=== PATIENT | male | born 1985 | race Caucasian/White ===

== ENCOUNTER 2021-03-23 08:00 | Outpatient (CLI) | payer OTHER, MEDICAID | END 2021-03-23 23:59 | disposition home or self-care (01) | LOC: LAB.N 08:00 | PROVIDERS: ATTEND Family Medicine | DX: U07.1 COVID-19 (principal) ==

== ENCOUNTER 2022-07-17 07:18 | Outpatient (CLI) | payer OTHER, MEDICAID ==
[2022-07-17 12:17] LABS: BASOPHILS # (AUTO) 0.1 10^3/uL (0.0-0.1); BASOPHILS % (AUTO) 0.7 %; EOSINOPHILS # (AUTO) 0.1 10^3/uL (0.0-0.7); EOSINOPHILS % (AUTO) 0.9 %; HCT - HEMATOCRIT 49.2 % (42.0-52.0); HGB - HEMOGLOBIN 16.5 g/dL (14.0-18.0); LYMPHOCYTES # (AUTO) 1.8 10^3/uL (1.5-3.5); LYMPHOCYTES % (AUTO) 22.6 %; MEAN CORPUSCULAR HEMOGLOBIN 30.1 pg (27.0-31.0); MEAN CORPUSCULAR HGB CONC 33.5 g/dL (32.0-36.0); MEAN CORPUSCULAR VOLUME 89.8 fL (80.0-94.0); MEAN PLATELET VOLUME 11.2 fL (7.4-11.4); MONOCYTES # (AUTO) 0.7 10^3/uL (0.0-1.0); MONOCYTES % (AUTO) 8.8 %; NEUTROPHILS # (AUTO) 5.4 10^3/uL (1.5-6.6); NEUTROPHILS % (AUTO) 66.8 %; PLT - PLATELET COUNT 226 10^3/uL (130-450); RED BLOOD COUNT 5.48 10^6/uL (4.70-6.10); WHITE BLOOD COUNT 8.1 x10^3/uL (4.8-10.8)
[2022-07-17 17:33] LABS: ALBUMIN 4.1 g/dL (3.2-5.5); ALBUMIN/GLOBULIN RATIO 1.3 (1.0-2.2); ALKALINE PHOSPHATASE 56 IU/L (42-121); ALT ALANINE AMINOTRANSFERASE 28 IU/L (10-60); AST ASPARTATE AMINOTRANSFERASE 22 IU/L (10-42); BILIRUBIN,TOTAL 0.8 mg/dL (0.2-1.0); BUN - BLOOD UREA NITROGEN 18 mg/dL (6-20); CALCIUM 10.4 mg/dL (8.5-10.3); CARBON DIOXIDE - CO2 24 mmol/L (21-32); CHLORIDE 105 mmol/L (101-111); CHOL/HDL RATIO 3.7 (<5.0); CHOLESTEROL 164 mg/dL; CREATININE 0.8 mg/dL (0.6-1.2); GFR - MDRD 108 (>89); GLUCOSE 109 mg/dL (70-100); HDL CHOLESTEROL 44 mg/dL; LDL CHOLESTEROL,CALCULATED 107 mg/dL; LDL/HDL RATIO 2.4 (<3.6); POTASSIUM 4.2 mmol/L (3.5-5.0); SODIUM 142 mmol/L (135-145); TOTAL PROTEIN 7.2 g/dL (6.7-8.2); TRIGLYCERIDES 64 mg/dL; VLDL CHOLESTEROL 13 mg/dL
== END 2022-07-17 07:19 | disposition home or self-care (01) ==
LOC: LAB.N 07:18
PROVIDERS: ATTEND Physician Assistant
DX: J45.20 Mild intermittent asthma, uncomplicated (principal); Z13.220 Encounter for screening for lipoid disorders
CPT/HCPCS: 36415; 80053; 80061; 83721; 85025

== ENCOUNTER 2022-11-05 15:21 | Emergency (ER) | payer OTHER, MEDICAID ==
[2022-11-05 15:57] LABS: RAPID STREP SCREEN Negative (Negative)
--- NOTE | 2022-11-05 17:13 | ED Physician Documentation ---
PD HPI URI - Stated complaint Stated Complaint: THROAT PX,COUGH - Chief complaint Chief Complaint: Heent - History obtained from History obtained from: Patient - History of Present Illness Timing - onset: How many days ago (2-3) Timing duration: Days (2-3) Timing details: Abrupt onset, Still present Associated symptoms: Fever, Nasal congestion, Sore throat. No: Dry cough, NVD Contributing factors: Sick contact (child with similar symptoms.) Similar symptoms before: Has not had sx before Review of Systems Constitutional: reports: Fever, Myalgias Nose: reports: Congestion Throat: reports: Sore throat Respiratory: denies: Cough GI: denies: Vomiting, Diarrhea Skin: denies: Rash Neurologic: reports: Headache. denies: Altered mental status PD PAST MEDICAL HISTORY - Past Medical History Cardiovascular: None Respiratory: None - Present Medications Home Medications: Ambulatory Orders Medication Instructions Recorded Confirmed Albuterol Sulf [Ventolin Hfa 1 - 2 puffs INH Q4HR PRN 11/05/22 11/05/22 Inhaler] Albuterol Sulf [Ventolin Hfa 2 - 3 puffs INH Q4HR PRN #1 each 11/05/22 Inhaler] Methylphenidate [Ritalin] 10 mg PO BID PRN 11/05/22 11/05/22 Naproxen Sodium [Aleve] 220 mg ORAL BID PRN 11/05/22 11/05/22 dexAMETHasone [Decadron] 4 mg PO DAILY #10 tablet 11/05/22 - Allergies Allergies/Adverse Reactions: Allergies Allergy/AdvReac Type Severity Reaction Status Date / Time No Known Drug Allergies Allergy Verified 11/05/22 15:36 PD ED PE NORMAL - Vitals Vital signs reviewed: Yes - General General: Alert and oriented X 3, Well developed/nourished, Other (appears tired and ill. ) - HEENT HEENT: Ears normal, Pharynx benign - Neck Neck: Supple, no meningeal sign, No adenopathy - Cardiac Cardiac: RRR, No murmur - Respiratory Respiratory: Clear bilaterally - Derm Derm: Normal color, Warm and dry - Neuro Neuro: Alert and oriented X 3, No motor deficit, Normal speech Results - Vitals Vitals: Oxygen O2 Source Room air - Labs Labs: Microbiology 11/05/22 15:35 Group A Strep Throat Culture - Preliminary Throat CULTURE IN PROGRESS. RESULTS TO FOLLOW. Laboratory Tests 11/05/22 15:35 Group A Strep Rapid Negative PD Medical Decision Making - ED course Complexity details: reviewed results (negative rapid strep, await culture. ), considered differential (having URI symotms withmarked sore throat, but clinical is only 1/4 Centor, so presume viral. ), d/w patient Departure - Departure Disposition: 01 Home, Self Care Clinical Impression: Throat pain Upper respiratory infection Qualifiers: URI type: unspecified URI Qualified Code(s): J06.9 - Acute upper respiratory infection, unspecified Exacerbation of asthma Qualifiers: Asthma severity: mild Asthma persistence: intermittent Qualified Code(s): J45.21 - Mild intermittent asthma with (acute) exacerbation Condition: Stable Record reviewed to determine appropriate education?: Yes Prescriptions: Albuterol Sulf [Ventolin Hfa Inhaler] 2 - 3 puffs INH Q4HR PRN #1 each PRN Reason: Shortness Of Air/Wheezing dexAMETHasone [Decadron] 4 mg PO DAILY #10 tablet Comments: Your rapid strep test is negative. We will do a culture off of that and will report in 2 days. We will call you if we need to add any antibiotics based on it. At this point it does not look clinically like strep and I would just wait on the culture. For your asthma, use Decadron steroid as directed 2 tablets daily for 3 days and then once daily for a week. Use the albuterol inhaler as needed. Stay well-hydrated. Tylenol if needed for fevers or pains. I sent your prescription to [facility] pharmacy. Discharge Date/Time: 11/05/22 17:59
[2022-11-05 18:01] VITALS: BP 137/82
== END 2022-11-05 17:59 | disposition home or self-care (01) ==
LOC: ED 15:21
DX: R07.0 Pain in throat (principal)
CPT/HCPCS: 87070; 87430; 99283; 99284